=== PATIENT | female | born 1995 | race Caucasian/White ===

== ENCOUNTER 2017-11-03 05:41 | Emergency (ER) | payer SELFPAY ==
[~2017-11-03] VITALS: Ht 170.2 cm; Wt 98.6 kg
[~2017-11-03 05:41] MED LIST: keppra PO; trileptal PO
[2017-11-03] MEDS ORDERED: KEPPRA PO (05:47)
[2017-11-03] MEDS ORDERED: TRILEPTAL PO (05:47)
[2017-11-03 06:08] VITALS: BP 114/76
== END 2017-11-03 07:06 | disposition home or self-care (01) ==
LOC: EMS 05:41
DX: G40.909 Epilepsy, unspecified, not intractable, without status epilepticus (principal); F12.90 Cannabis use, unspecified, uncomplicated; Z88.0 Allergy status to penicillin; Z88.8 Allergy status to other drugs, medicaments and biological substances
CPT/HCPCS: 99283